=== PATIENT | male | born 1945 | race Caucasian/White ===

== ENCOUNTER → 2016-12-27 | Outpatient (CLI) | payer MEDICARE, OTHER ==
[2016-10-14 15:19] VITALS: BP 147/73
[~2016-12-27] MED LIST: ASPI-482 PO; ATOR20TA PO; FERR325T58 PO; GLIM2TAB2 PO; HYDR-2666 PO; MECL25TA3 PO; METF10002 PO; METO25TA4 PO; OMEP40CA5 PO; VALS160T3 PO
--- NOTE | 2016-12-27 11:26 | RAD ---
AP chest, 12/27/2016: History: Check catheter placement Comparison is made to a study from 06/15/2014. There has been a previous median sternotomy. A left Port-A-Cath has been inserted extending into the superior vena cava. The heart size and pulmonary vascularity are normal. No pulmonary infiltrate is seen. There is no evidence of pneumothorax or pleural fluid. IMPRESSION: 1. The left Port-A-Cath extends into the superior vena cava. 2. No acute cardiopulmonary abnormality is detected.
== END | disposition home or self-care (01) ==
LOC: RAD 10:56
PROVIDERS: ATTEND Internal Medicine Interventional Cardiology
DX: Z95.828 Presence of other vascular implants and grafts (principal)
CPT/HCPCS: 71010

== ENCOUNTER → 2017-02-14 | Outpatient (CLI) | payer MEDICARE, OTHER ==
[2017-02-14] VITALS (7 sets, daily range): BP systolic 106–147; BP diastolic 51–66
[~2017-02-14] MED LIST changes: +ACETAMINOPHEN 325 MG TABLET. PO ONE; +ACYC800T PO; +ALLO300T PO; +ASPI81TA2 PO; +BENZ100C2 PO; +CYAN10005 PO; +DIPHENHYDRAMINE HCL 25 MG CAPSULE PO ONE; +DOCU240C13 PO; +FLUC200T4 PO; +FUROSEMIDE 20 MG/2 ML VIAL. IVP ONE; +HEPARIN PF 500 UNIT/5 ML DISP.SYRIN. IV ONE; +LEVO750T5 PO; +MIRT15TA3 PO; +NYST1POW2 PO; +ONDA8TAB15 PO
[2017-02-14 08:06] LABS: HEMOGLOBIN 6.5 g/dL (13.0-17.5)
[2017-02-14 08:07] LABS: HEMATOCRIT 20.1 % (39.0-53.0)
== END | disposition home or self-care (01) ==
LOC: OPS 07:08
PROVIDERS: ATTEND Internal Medicine Hematology & Oncology
DX: C92.00 Acute myeloblastic leukemia, not having achieved remission (principal)
CPT/HCPCS: 36415; 36430; 85014; 85018; 86850; 86900; 86901; 86920; P9016; Q0163